=== PATIENT | male | born 1980 | race Caucasian/White ===

== ENCOUNTER → 2023-07-27 11:28 | Outpatient (BNVA) | payer BC, SELFPAY | PROVIDERS: PCP Family Medicine; Visit Provider Clinical Nurse Specialist Adult Health | DX: R19.7 Diarrhea, unspecified (principal); R53.83 Other fatigue; M79.10 Myalgia, unspecified site | CPT/HCPCS: 80053; 85025; 86140; 87207 ==

== ENCOUNTER → 2023-07-29 11:13 | Outpatient (BNVA) | payer BC, SELFPAY | PROVIDERS: PCP Family Medicine; Visit Provider Family Medicine | DX: R74.8 Abnormal levels of other serum enzymes (principal) | CPT/HCPCS: 80074; 80076 ==

== ENCOUNTER → 2023-08-11 10:56 | Outpatient (BNVA) | payer BC, SELFPAY | PROVIDERS: PCP Family Medicine; Visit Provider Family Medicine | DX: R74.8 Abnormal levels of other serum enzymes (principal); Z00.00 Encounter for general adult medical examination without abnormal findings | CPT/HCPCS: 80053; 80061; 85025; 86140 ==

== ENCOUNTER → 2024-11-21 13:23 | Outpatient (BNVA) | payer BC, SELFPAY | PROVIDERS: PCP Family Medicine; Visit Provider Family Medicine | DX: R74.8 Abnormal levels of other serum enzymes (principal) | CPT/HCPCS: 80053; 80061 ==

== ENCOUNTER 2024-12-22 08:53 | Day surgery (SDC) | payer BC, SELFPAY ==
[2024-12-22 09:05] VITALS: BP 121/84; PULSE 62; RESP 18; TEMP 36.6; O2SAT 100; BMI 24.5
--- NOTE | 2024-12-22 09:34 | W.PM.OPSUD ---
Surgery/Procedure H&P Update DATE OF PROCEDURE: December 22, 2024 DATE H&P PERFORMED: 12/07/24 H&P UPDATE INFORMATION: I have reviewed H&P completed within last 30 days, I have examined patient prior to procedure, No changes to prior documentation, H&P is in [facility] EMR on date indicated and Risks and benefits of the procedure reviewed PLANNED PROCEDURE: Operation Date: 12/22/24 10:35 Proposed Procedures p Colonoscopy [id number] G0121 Z12.11(Not Applicable) - Nicolás Evangelista MD
--- NOTE | 2024-12-22 10:04 | ANES.PREANE2 ---
Pre-Anesthetic Assessment Height/Weight: Height 1.96 m Weight 93.894 kg Temp Pulse Resp BP Pulse Ox O2 Del Method 97.8 F 62 18 121/84 100 Room Air 12/22/24 09:05 12/22/24 09:05 12/22/24 09:05 12/22/24 09:05 12/22/24 09:05 12/22/24 09:05 Operation Date: 12/22/24 10:35 Proposed Procedures p Colonoscopy [id number] [id number] Z12.11(Not Applicable) - Nicolás Evangelista MD Familial anesthetic complications: None Was Beta Blaine taken within 24 hours: N/A Was Clonidine taken within 24 hours: N/A Last intake: Intake Last Liquid Date 12/21/24 Last Liquid Time 23:45 Last Solid Date 12/20/24 Last Solid Time 21:00 Social vapes cannabis - last use over 36 hrs ago Exam alert, oriented x 3, clear to auscultation bilaterally and regular rate & rhythm Airway Mallampati: Class II Anesthetic Plan ASA status: 1 Anesthesia: MAC Risk of > 500 ml blood loss (7ml/kg in children): No Medications/Allergies Home Medications ?Medication ?Instructions ?Recorded ?Confirmed ?Last Taken ?Type No Known Home Medications 12/07/24 12/22/24 Unknown History Allergies Allergy/AdvReac Type Severity Reaction Status Date / Time No Known Allergies Allergy Verified 12/19/24 10:31 Current Medications Generic Name Dose Route Start Last Admin Trade Name Freq PRN Reason Stop Dose Admin Sodium Chloride 1,000 mls @ 15 mls/hr 12/22/24 09:01 12/22/24 09:09 Sodium Chloride 0.9% IV 12/23/24 09:00 15 mls/hr .Q24H PRN Administration COLONOSCOPY FLUIDS PFSH Anesthesia Surgical History (Updated 12/07/24 @ 13:55 by Howard Sarmiento LPN) No pertinent past surgical history Social History Smoking and tobacco/nicotine status: never used tobacco/nicotine
[2024-12-22 10:57] VITALS: BP 99/61; PULSE 68; RESP 18; TEMP 36.4; O2SAT 97
[2024-12-22 11:10] VITALS: BP 98/64; PULSE 65; RESP 18; O2SAT 97
[2024-12-22 11:20] VITALS: BP 103/75; PULSE 60; RESP 18; O2SAT 98
--- NOTE | 2024-12-22 11:25 | ANE.PACU2 ---
Inpatient post-anesthesia follow up: Airway intact: Yes Vital signs: Temperature 97.5 F Pulse Rate 60 Respiratory Rate 18 Blood Pressure 103/75 Pulse Oximetry 98 Oxygen Delivery Me thod Room Air Oxygen Flow Rate Fraction of Inspir ed Oxygen Hydration adequate: Yes Nausea and vomiting: No Pain level: 1 Mental status: Baseline
== END 2024-12-22 11:27 | disposition home or self-care (01) ==
PROVIDERS: PCP Family Medicine; Visit Provider Surgery
PROC: 0DJD8ZZ Inspection of Lower Intestinal Tract, Via Natural or Artificial Opening Endoscopic (ICD-10-PCS; CPT 45378; principal; 2024-12-22 10:35)
DX: Z12.11 Encounter for screening for malignant neoplasm of colon (principal)
CPT/HCPCS: 45378; J2704; J7030